=== PATIENT | male | born 2000 | race Caucasian/White ===

== ENCOUNTER 2019-12-21 22:31 | Inpatient (IN) | payer OTHER ==
[~2019-12-21] VITALS: Ht 177.8 cm; Wt 57.8 kg
--- NOTE | 2019-12-21 23:26 | NUR ---
THIS IS A 19 YO MALE BIB FRIEND WHO REPORT THAT PT HAS BEEN HEAVILY DRINKING 24 HOURS AGO, DRANK "A BOTTLE OF VODA TO HIMSELF" AND DEVELOPED R SIDED WEAKNESS TODAY, AND "HE HE HASN'T REALLY BEEN RESPONSIVE". UNKNOWN LAST KNOWN NORMAL. FRIEND AND GIRLFRIEND DO NOT KNOW IF ANY DRUGS WERE INVOLVED. UNKNOWN MEDICAL HX. PT LETHARGIC, RESPONDS TO LOUD VERBAL STIMULI AND PAIN. ABLE TO FOLLOW COMMANDS. ABLE TO MAINTAIN SECRETIONS, AIRWAY PATENT. 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 VSS.
[2019-12-21] MEDS ORDERED: SODIUM CHLORIDE FLUSH 10ML SYR IVF ONE (23:30)
[2019-12-21 23:39] LABS: ALBUMIN 4.5 g/dL (3.4-5.0); ANION GAP 10 mmol/L (5-15); BASOPHILS % (AUTO) 0 % (0-1); CALCIUM 9.6 mg/dL (8.5-10.1); CHLORIDE 105 mmol/L (98-107); EOSINOPHILS % (AUTO) 0 % (1-7); LYMPHOCYTES % (AUTO) 4 % (22-44); MEAN CORPUSCULAR HEMOGLOBIN 29.1 pg (27.5-34.5); MEAN CORPUSCULAR HGB CONC 33.4 g/dL (33.2-36.2); MEAN PLATELET VOLUME 7.8 fL (7.4-10.4); MONOCYTES % (AUTO) 6 % (2-9); NEUTROPHILS % (AUTO) 89 % (42-75); PLATELET COUNT 437 x10^3/uL (130-400); RED BLOOD COUNT 5.09 x10^6/uL (4.38-5.82)
--- NOTE | 2019-12-21 23:39 | NUR ---
ERP IN ROOM AFTER CT SCAN COMPLETED.
--- NOTE | 2019-12-21 23:49 | NUR ---
[place] (MOTHER): [phone]
[2019-12-21] MEDS ORDERED: THROMBIN 20,000 UNIT VIAL TP ONE (23:54)
[2019-12-21] MEDS ORDERED: BUPIVACAINE/PF 0.5% ONE (23:54)
[2019-12-21] MEDS ORDERED: BACITRACIN 50,000 UNIT ONE (23:54)
[2019-12-21] MEDS ORDERED: EPINEPHRINE 1 MG/ML, 1ML ONE (23:54)
--- NOTE | 2019-12-21 23:56 | NUR ---
REPORT CALLED TO OR, THEY ARE ON THEIR WAY TO GET PATIENT AND TRANSPORT TO SURGERY
--- NOTE | 2019-12-21 23:58 | NUR ---
VANI (GIRLFRIEND): [phone] TEODORA (SISTER): [phone]
--- NOTE | 2019-12-22 00:01 | NUR ---
OR TECH TRANSPORTING PATIENT TO OR AT THIS TIME, GIRLFRIEND AND SISTER ACCOMPANYING
[2019-12-22 00:08] LABS: MD SCAN
[2019-12-22] MEDS ORDERED: FENTANYL PF 250 MCG/5ML ONE ×2 (00:21→00:57)
[2019-12-22] MEDS ORDERED: BACITRACIN 50,000 UNIT IRRIG ONE (00:55)
[2019-12-22] MEDS ORDERED: BUPIVACAINE/PF-EPI 0.5% 1:200K INFIL ONE (00:55)
[2019-12-22] MEDS ORDERED: THROMBIN 20,000 UNIT VIAL TP ONE (00:56)
[2019-12-22] MEDS ORDERED: PROPOFOL 50 ML ONE (00:58)
[2019-12-22] MEDS ORDERED: PROMETHAZINE 25 MG/ML, 1ML IM PRN (01:00)
[2019-12-22] MEDS ORDERED: POLYETHYLENE GLYCOL 17 GM PACKET PO PRN (01:00)
[2019-12-22] MEDS ORDERED: ONDANSETRON 2MG/ML, 2ML IVPush PRN (01:00)
[2019-12-22] MEDS ORDERED: ACETAMINOPHEN 325 MG TABLET PO PRN (01:00)
[2019-12-22] MEDS ORDERED: BISACODYL 10 MG SUPP PR PRN (01:00)
[2019-12-22] MEDS ORDERED: OXYcodone IR 5MG TABLET PO PRN (01:00)
[2019-12-22] MEDS ORDERED: ONDANSETRON ODT 4 MG PO PRN (01:00)
[2019-12-22] MEDS ORDERED: morphine SULFATE 10 MG/ML, 1ML IVPush PRN (01:00)
[2019-12-22] MEDS ORDERED: DOCUSATE 100 MG CAPSULE PO PRN (01:00)
[2019-12-22] MEDS ORDERED: ROCURONIUM 10MG/ML,5ML ONE (01:04)
[2019-12-22] MEDS ORDERED: DEXAMETHASONE 4 MG/ML, 1ML ONE (01:04)
[2019-12-22] MEDS ORDERED: SUCCINYLCHOLINE 20 MG/ML, 10ML ONE (01:04)
[2019-12-22] MEDS ORDERED: CEFAZOLIN 1,000 MG ONE (01:04)
[2019-12-22] MEDS ORDERED: PROPOFOL 10 MG/ML, 20ML ONE (01:04)
[2019-12-22] MEDS ORDERED: PROPOFOL 100 ML IV ONE (02:11)
[2019-12-22] MEDS: PROPOFOL 100 ML IV PRN ×2 (02:18→07:03)
[2019-12-22] MEDS ORDERED: LABETALOL 5MG/ML, 20ML ONE (02:49)
[2019-12-22] MEDS ORDERED: LABETALOL 5MG/ML, 20ML IVPush PRN (03:30)
[2019-12-22] MEDS ORDERED: MORPHINE PCA MC SCH (03:30)
[2019-12-22] MEDS: NS + 20MEQ KCL 1,000 ML IV SCH ×3 (03:37→21:33)
[2019-12-22] MEDS: CEFAZOLIN PMX 1GM/50ML 50 ML IVPB SCH ×2 (03:37→11:06)
[2019-12-22 04:00] VITALS: BP 126/68
[2019-12-22 06:09] VITALS: BP 123/69
[2019-12-22] MEDS ORDERED: INSULIN REGULAR 100 UNITS/ML, 3ML VIAL SQ-INSULIN SCH (07:00)
[2019-12-22 07:58] LABS: MICROSCOPIC NOT IND
[2019-12-22 08:08] LABS: AMPHETAMINE SCREEN, URINE Negative (Negative); BARBITURATE SCREEN, URINE Negative (Negative); BENZODIAZEPINE SCREEN, URINE Negative (Negative); CANNABINOID SCREEN, URINE Negative (Negative); COCAINE SCREEN, URINE Negative (Negative); METHADONE SCREEN, URINE Negative (Negative); OPIATE SCREEN, URINE Negative (Negative)
[2019-12-22 08:25] LABS: BASOPHILS % (AUTO) 0 % (0-1); EOSINOPHILS % (AUTO) 0 % (1-7); LYMPHOCYTES % (AUTO) 2 % (22-44); MEAN CORPUSCULAR HEMOGLOBIN 29.7 pg (27.5-34.5); MEAN CORPUSCULAR HGB CONC 33.7 g/dL (33.2-36.2); MEAN PLATELET VOLUME 7.8 fL (7.4-10.4); MONOCYTES % (AUTO) 4 % (2-9); NEUTROPHILS % (AUTO) 94 % (42-75); PLATELET COUNT 372 x10^3/uL (130-400); RED BLOOD COUNT 4.27 x10^6/uL (4.38-5.82); RED CELL DISTRIBUTION WIDTH 12.9 % (9.4-14.8)
[2019-12-22 08:37] LABS: ALANINE AMINOTRANSFERASE 29 U/L (12-78); ALBUMIN 3.7 g/dL (3.4-5.0); ANION GAP 7 mmol/L (5-15); CALCIUM 8.5 mg/dL (8.5-10.1); CHLORIDE 110 mmol/L (98-107); CREATININE 1.09 mg/dL (0.7-1.3)
[2019-12-22 08:40] LABS: ALKALINE PHOSPHATASE 78 U/L (45-117); BILIRUBIN,TOTAL 0.5 mg/dL (0.2-1.0); TOTAL PROTEIN 7.5 g/dL (6.4-8.2)
[2019-12-22 08:49] LABS: CHOL/HDL RATIO 2.3; FREE T4 (FREE THYROXINE) 1.37 ng/dL (0.76-1.46); LDL/HDL RATIO 1.1 (0.5-3.0)
[2019-12-22 08:56] LABS: MD SCAN
[2019-12-22] MEDS: OXYcodone IR 5MG TABLET PO PRN ×3 (13:49→21:59)
[2019-12-22] MEDS: ONDANSETRON 2MG/ML, 2ML IVPush PRN (18:51)
[2019-12-22] MEDS: INSULIN REGULAR 100 UNITS/ML, 3ML VIAL SQ-INSULIN SCH (21:00)
[2019-12-23 04:00] VITALS: BP 96/48
[2019-12-23 05:12] LABS: BASOPHILS % (AUTO) 0 % (0-1); EOSINOPHILS % (AUTO) 0 % (1-7); LYMPHOCYTES % (AUTO) 8 % (22-44); MEAN CORPUSCULAR HEMOGLOBIN 29.6 pg (27.5-34.5); MEAN CORPUSCULAR HGB CONC 33.7 g/dL (33.2-36.2); MEAN PLATELET VOLUME 7.8 fL (7.4-10.4); MONOCYTES % (AUTO) 11 % (2-9); NEUTROPHILS % (AUTO) 81 % (42-75); PLATELET COUNT 319 x10^3/uL (130-400); RED BLOOD COUNT 3.79 x10^6/uL (4.38-5.82); RED CELL DISTRIBUTION WIDTH 12.8 % (9.4-14.8)
[2019-12-23 05:15] LABS: MD NO
[2019-12-23 05:27] LABS: CREATININE 0.81 mg/dL (0.7-1.3)
[2019-12-23] MEDS: OXYcodone IR 5MG TABLET PO PRN ×4 (05:32→21:24)
[2019-12-23 06:01] LABS: ANION GAP 5 mmol/L (5-15); CHLORIDE 111 mmol/L (98-107)
[2019-12-23] MEDS: INSULIN REGULAR 100 UNITS/ML, 3ML VIAL SQ-INSULIN SCH ×2 (07:00→11:00)
[2019-12-23] MEDS: ONDANSETRON 2MG/ML, 2ML IVPush PRN ×2 (10:33→15:50)
[2019-12-23] MEDS ORDERED: INSULIN REGULAR 100 UNITS/ML, 3ML VIAL SQ-INSULIN SCH (15:00)
[2019-12-24] MEDS: OXYcodone IR 5MG TABLET PO PRN (02:18)
[2019-12-24] MEDS: ONDANSETRON 2MG/ML, 2ML IVPush PRN ×2 (03:11→12:11)
[2019-12-24] MEDS: morphine SULFATE 10 MG/ML, 1ML IV PRN ×2 (03:53→12:12)
[2019-12-24 04:00] VITALS: BP 123/59
[2019-12-24] MEDS ORDERED: PROCHLORPERAZINE 5 MG/ML, 2ML IVPush PRN (05:00)
[2019-12-24 05:04] LABS: BASOPHILS % (AUTO) 0 % (0-1); EOSINOPHILS % (AUTO) 0 % (1-7); LYMPHOCYTES % (AUTO) 16 % (22-44); MEAN CORPUSCULAR HEMOGLOBIN 29.7 pg (27.5-34.5); MEAN CORPUSCULAR HGB CONC 33.6 g/dL (33.2-36.2); MEAN PLATELET VOLUME 8.2 fL (7.4-10.4); MONOCYTES % (AUTO) 12 % (2-9); NEUTROPHILS % (AUTO) 72 % (42-75); PLATELET COUNT 365 x10^3/uL (130-400); RED BLOOD COUNT 3.94 x10^6/uL (4.38-5.82); RED CELL DISTRIBUTION WIDTH 12.8 % (9.4-14.8)
[2019-12-24 05:08] LABS: CALCIUM 8.9 mg/dL (8.5-10.1); CHLORIDE 104 mmol/L (98-107); CREATININE 0.96 mg/dL (0.7-1.3)
[2019-12-24 05:12] LABS: ANION GAP 7 mmol/L (5-15)
[2019-12-24 05:23] LABS: MD NO
[2019-12-24] MEDS ORDERED: LEVETIRACETAM 500 MG TABLET PO SCH (11:30)
[2019-12-24] MEDS ORDERED: DEXAMETHASONE 4 MG/ML, 1ML ONE (11:51)
[2019-12-24] MEDS ORDERED: DEXAMETHASONE 4 MG/ML, 1ML IVPush ONE (12:00)
[2019-12-24] MEDS ORDERED: ACETAMINOPHEN 325 MG TABLET ONE (12:03)
[2019-12-24] MEDS: LEVETIRACETAM 500 MG TABLET PO SCH (12:05)
[2019-12-24] MEDS ORDERED: ACETAMINOPHEN 650 MG/20.3 ML UDC PO PRN (12:30)
[2019-12-24] MEDS ORDERED: ONDANSETRON 2MG/ML, 2ML IVPush PRN (15:30)
[2019-12-24] MEDS ORDERED: METOCLOPRAMIDE 5 MG/ML, 2ML IVPush PRN (15:30)
[2019-12-24] MEDS: DEXAMETHASONE 4 MG/ML, 1ML IVPush SCH ×2 (17:45→22:54)
[2019-12-24] MEDS: ACETAMINOPHEN 325 MG TABLET PO PRN (22:32)
[2019-12-25] MEDS: ACETAMINOPHEN 325 MG TABLET PO PRN (04:04)
[2019-12-25 04:27] LABS: BASOPHILS % (AUTO) 0 % (0-1); EOSINOPHILS % (AUTO) 0 % (1-7); LYMPHOCYTES % (AUTO) 7 % (22-44); MEAN CORPUSCULAR HEMOGLOBIN 29.6 pg (27.5-34.5); MEAN CORPUSCULAR HGB CONC 34.5 g/dL (33.2-36.2); MONOCYTES % (AUTO) 5 % (2-9); NEUTROPHILS % (AUTO) 88 % (42-75); PLATELET COUNT 408 x10^3/uL (130-400); RED BLOOD COUNT 4.42 x10^6/uL (4.38-5.82); RED CELL DISTRIBUTION WIDTH 12.3 % (9.4-14.8)
[2019-12-25 04:28] LABS: MD NO
[2019-12-25 04:36] LABS: ANION GAP 7 mmol/L (5-15); CALCIUM 9.4 mg/dL (8.5-10.1); CHLORIDE 100 mmol/L (98-107); CREATININE 0.81 mg/dL (0.7-1.3)
[2019-12-25 05:00] VITALS: BP 125/69
[2019-12-25] MEDS: DEXAMETHASONE 4 MG/ML, 1ML IVPush SCH ×3 (06:11→17:51)
[2019-12-25] MEDS: LEVETIRACETAM 500 MG TABLET PO SCH ×2 (09:26→20:50)
[2019-12-26 04:10] VITALS: BP 110/63
[2019-12-26 04:48] LABS: ANION GAP 6 mmol/L (5-15); CALCIUM 9.2 mg/dL (8.5-10.1); CHLORIDE 100 mmol/L (98-107); CREATININE 0.91 mg/dL (0.7-1.3)
[2019-12-26 04:59] LABS: BASOPHILS % (AUTO) 0 % (0-1); EOSINOPHILS % (AUTO) 0 % (1-7); LYMPHOCYTES % (AUTO) 5 % (22-44); MEAN CORPUSCULAR HEMOGLOBIN 29.6 pg (27.5-34.5); MEAN CORPUSCULAR HGB CONC 34.8 g/dL (33.2-36.2); MEAN PLATELET VOLUME 8.2 fL (7.4-10.4); MONOCYTES % (AUTO) 5 % (2-9); NEUTROPHILS % (AUTO) 90 % (42-75); PLATELET COUNT 456 x10^3/uL (130-400); RED CELL DISTRIBUTION WIDTH 12.6 % (9.4-14.8)
[2019-12-26 05:12] LABS: MD NO
[2019-12-26] MEDS: DEXAMETHASONE 4 MG/ML, 1ML IVPush SCH ×2 (05:39)
[2019-12-26] MEDS ORDERED: POLYETHYLENE GLYCOL 17 GM PACKET PO PRN (08:30)
[2019-12-26] MEDS: DOCUSATE 100 MG CAPSULE PO PRN (09:58)
[2019-12-26] MEDS: LEVETIRACETAM 500 MG TABLET PO SCH ×2 (09:58→20:32)
[2019-12-26 20:09] VITALS: BP 97/63
[2019-12-26] MEDS: ACETAMINOPHEN 325 MG TABLET PO PRN ×2 (20:32)
[2019-12-27 01:32] VITALS: BP 105/68
[2019-12-27 06:09] LABS: CHLORIDE 103 mmol/L (98-107)
[2019-12-27 06:17] LABS: ANION GAP 7 mmol/L (5-15); CALCIUM 9.3 mg/dL (8.5-10.1); CREATININE 0.88 mg/dL (0.7-1.3)
[2019-12-27 06:27] LABS: BASOPHILS % (AUTO) 0 % (0-1); EOSINOPHILS % (AUTO) 0 % (1-7); LYMPHOCYTES % (AUTO) 16 % (22-44); MEAN CORPUSCULAR HEMOGLOBIN 29.5 pg (27.5-34.5); MEAN CORPUSCULAR HGB CONC 34.3 g/dL (33.2-36.2); MEAN PLATELET VOLUME 8.2 fL (7.4-10.4); MONOCYTES % (AUTO) 12 % (2-9); NEUTROPHILS % (AUTO) 72 % (42-75); PLATELET COUNT 455 x10^3/uL (130-400); RED CELL DISTRIBUTION WIDTH 12.4 % (9.4-14.8)
[2019-12-27 07:34] VITALS: BP 120/69
[2019-12-27 07:51] LABS: MD SCAN
[2019-12-27] MEDS ORDERED: ACETAMINOPHEN 325 MG TABLET PO PRN (08:30)
[2019-12-27] MEDS: LEVETIRACETAM 500 MG TABLET PO SCH ×2 (09:39→21:28)
[2019-12-27] MEDS: DOCUSATE 100 MG CAPSULE PO PRN ×2 (09:39→21:29)
[2019-12-27] MEDS ORDERED: SENN8.6T12 PO (10:36)
[2019-12-27] MEDS ORDERED: ACET325T26 PO (10:36)
[2019-12-27] MEDS ORDERED: LEVE500T53 PO (10:36)
[2019-12-27 15:18] VITALS: BP 116/72
[2019-12-27] MEDS ORDERED: MAGNESIUM HYDROXIDE 8%, 30ML UDC PO PRN (16:00)
[2019-12-27 20:53] VITALS: BP 104/72
[2019-12-28 03:55] VITALS: BP 98/62
[2019-12-28 05:28] LABS: BASOPHILS % (AUTO) 0 % (0-1); EOSINOPHILS % (AUTO) 1 % (1-7); LYMPHOCYTES % (AUTO) 33 % (22-44); MEAN CORPUSCULAR HEMOGLOBIN 29.9 pg (27.5-34.5); MEAN CORPUSCULAR HGB CONC 34.7 g/dL (33.2-36.2); MEAN PLATELET VOLUME 7.9 fL (7.4-10.4); MONOCYTES % (AUTO) 11 % (2-9); NEUTROPHILS % (AUTO) 55 % (42-75); PLATELET COUNT 420 x10^3/uL (130-400); RED BLOOD COUNT 4.04 x10^6/uL (4.38-5.82); RED CELL DISTRIBUTION WIDTH 12.7 % (9.4-14.8)
[2019-12-28 05:29] LABS: ANION GAP 4 mmol/L (5-15); CALCIUM 9.1 mg/dL (8.5-10.1); CHLORIDE 105 mmol/L (98-107)
[2019-12-28 05:30] LABS: CREATININE 0.91 mg/dL (0.7-1.3)
[2019-12-28 05:45] LABS: MD NO
[2019-12-28 08:16] VITALS: BP 113/76
[2019-12-28] MEDS: LEVETIRACETAM 500 MG TABLET PO SCH (08:50)
[2019-12-28] MEDS ORDERED: BISACODYL 10 MG SUPP PR SCH (09:00)
== END 2019-12-28 10:50 | disposition home or self-care (01) | DRG 25 ==
LOC: ED 23:53 → EDIP 12-22 00:33 → CCU 12-22 02:06 → 4NE 12-26 18:01 → DCLOUNGE 12-28 10:30
PROVIDERS: ADMIT Internal Medicine; ATTEND Internal Medicine
PROC: 0T9B30Z Drainage of Bladder with Drainage Device, Percutaneous Approach (ICD-10-PCS; 2019-12-22)
PROC: 5A1935Z Respiratory Ventilation, Less than 24 Consecutive Hours (ICD-10-PCS; 2019-12-22)
PROC: 00C30ZZ Extirpation of Matter from Intracranial Epidural Space, Open Approach (ICD-10-PCS; principal; 2019-12-22 01:00)
DX: S06.4X9A Epidural hemorrhage with loss of consciousness of unspecified duration, initial encounter (principal); G93.5 Compression of brain; J96.90 Respiratory failure, unspecified, unspecified whether with hypoxia or hypercapnia; G81.91 Hemiplegia, unspecified affecting right dominant side; G93.40 Encephalopathy, unspecified; R47.01 Aphasia; D64.9 Anemia, unspecified; D72.829 Elevated white blood cell count, unspecified; F10.129 Alcohol abuse with intoxication, unspecified; K59.00 Constipation, unspecified; Z20.828 Contact with and (suspected) exposure to other viral communicable diseases; Z91.19 Patient's noncompliance with other medical treatment and regimen; Z79.899 Other long term (current) drug therapy; Z79.01 Long term (current) use of anticoagulants; Z79.891 Long term (current) use of opiate analgesic; Z79.2 Long term (current) use of antibiotics
CPT/HCPCS: 36415; 36600; S0020; 70450; 71045; 80048; 80053; 80061; 80307; 81003; 82040; 82330; 82803; 82947; 82962; 83036; 83735; 84132; 84295; 84439; 84443; 85014; 85025; 87070; 87081; 87205; 87635; 93005; 94002; 95819; 99291; C1713; G0378; J0171; J0690; J1100; J2405; J2704; J3010; J3480; 92523-GN; J0330; J0780; J2270